=== PATIENT | male | born 1975 | race African-American/Black ===

== ENCOUNTER 2023-10-03 10:23 | Outpatient (CLI) | payer OTHER | END 2023-10-03 10:24 | disposition home or self-care (01) | LOC: SCSMRI 10:23 | PROVIDERS: ATTEND Nurse Practitioner Family | DX: S69.92XD Unspecified injury of left wrist, hand and finger(s), subsequent encounter (principal); S63.633D Sprain of interphalangeal joint of left middle finger, subsequent encounter ==

== ENCOUNTER 2024-02-24 05:48 | Day surgery (SDC) | payer BC ==
[2024-02-23 10:22] VITALS: BMI 46.0
[2024-02-24] MEDS ORDERED: Lidocaine 2% PF 5 ML VIAL ONE (07:06)
[2024-02-24] MEDS ORDERED: PROPOFOL 60 ML ONE (07:06)
== END 2024-02-24 09:14 | disposition home or self-care (01) ==
LOC: SDC 05:48
PROVIDERS: ATTEND Internal Medicine
PROC: 0DJD8ZZ Inspection of Lower Intestinal Tract, Via Natural or Artificial Opening Endoscopic (ICD-10-PCS; principal; 2024-02-24)
DX: Z12.11 Encounter for screening for malignant neoplasm of colon (principal); K64.8 Other hemorrhoids; K57.30 Diverticulosis of large intestine without perforation or abscess without bleeding; E78.2 Mixed hyperlipidemia; Z87.442 Personal history of urinary calculi
CPT/HCPCS: J2704